=== PATIENT | female | born 1990 ===

== ENCOUNTER 2016-07-31 22:51 | Inpatient (IN) | payer OTHER ==
[2016-07-31 23:20] VITALS: BMI 29.5
--- NOTE | 2016-07-31 23:21 | OBHP ---
Datetime: 07/31/2016 23:14 IP Adm Impression: Ruptured Membranes IP Admit Plan: Admit to unit; Initiate labor protocol Admit Comment, IP Provider: at 39weeks came with c/o rom at 10 pm , c/o ctxs irrg , 08/03, no vb ,+fm. obhx primi pmh den med pnv all nkda psh denies soch denies sse 1-2/50/-3 a/p at 39+weeks prom admit to l_d npo/ivf labs cont kiya and efm painmagement anticipate dr quesada aware Pelvic Type - PN: Adequate Extremities - PN: Normal Abdomen - PN: Normal Back - PN: Normal Breast - PN: Normal Lungs - PN: Normal Heart - PN: Normal Thyroid - PN: Normal Neurologic - PN: Normal HEENT - PN: Normal General - PN: Normal FHR - Baseline A Provider: 130 Amniotic Fluid Color, Provider: Clear Membranes, Provider: Ruptured Contraction Comments Provider: q1-4 Comments, ACOG Physical Exam: gravid,non tender ext no edema,no calf ten sse =pooling,+nitazine IP Hx Assessment: The History has been Reviewed and is Current EGA AdmitDate IP: 39.5 Vital Signs Provider: Reviewed; Within Normal Limits IP Chief Complaint: Uterine contractions; Suspected ruptured membranes NICHD Variability Prov Fetus A: Moderate 6-25bpm NICHD Accel Fetus A IP Provider: [id number] FHR Category Provider Fetus A: Category I Dilatation, Provider: 1 Effacement, Provider: 50 Station, Provider: -3 Genitourinary Exam: Normal DTRs - PN: Normal
[2016-07-31] MEDS ORDERED: Lactated Ringer's 1,000 ML IV SCH (23:30)
[2016-07-31] MEDS ORDERED: Nalbuphine 20 mg/ml Inj (1 ml) IVP PRN (23:30)
[2016-07-31 23:57] LABS: BASO % 0.2 % (0.0-2.0); EOS # 0.1 K/uL (0.0-0.7); EOS % 0.5 % (0.0-4.0); HEMATOCRIT 37.1 % (34.0-47.0); LYMPH # 2.1 K/uL (1.0-4.3); LYMPH % 14.6 % (20.0-40.0); MEAN CELL VOLUME 80.4 fL (81.0-99.0); MEAN CORPUSCULAR HEMOGLOBIN 25.9 pg (27.0-31.0); MEAN CORPUSCULAR HGB CONC 32.2 g/dL (33.0-37.0); MEAN PLATELET VOLUME 8.3 fL (7.2-11.7); MONO # 1.4 K/uL (0.0-0.8); MONO % 9.9 % (0.0-10.0); RED CELL DISTRIBUTION WIDTH 24.2 % (11.5-14.5); WHITE BLOOD COUNT 14.2 K/uL (4.8-10.8)
[2016-08-01 00:01] LABS: RBC URINE 2 /hpf (0-3); URINE BACTERIA RARE (<OCC); URINE BILIRUBIN NEGATIVE (NEGATIVE); URINE COLOR Yellow (YELLOW); URINE GLUCOSE (UA) NORMAL (Normal); URINE KETONE NEGATIVE (NEGATIVE); URINE LEUKOCYTE ESTERASE NEG Leu/uL (Negative); URINE PROTEIN NEGATIVE (NEGATIVE); URINE UROBILINOGEN NORMAL mg/dL (0.2-1.0); WBC URINE 1 /hpf (0-5)
[2016-08-01 00:16] LABS: CHLORIDE 102 mmol/L (98-107); POTASSIUM 3.7 mmol/L (3.6-5.2); SODIUM 136 mmol/L (132-148)
[2016-08-01 00:18] LABS: ALB/GLOB RATIO 1.1 (1.0-2.1); AST/SGOT 22 U/L (14-36); BILIRUBIN,TOTAL 0.5 mg/dL (0.2-1.3); BLOOD UREA NITROGEN 4 mg/dL (7-17); CARBON DIOXIDE 22 mmol/L (22-30); GFR AFRICAN-AMERICAN > 60; TOTAL PROTEIN 6.8 g/dL (6.3-8.3)
[2016-08-01 00:19] LABS: ALKALINE PHOSPHATASE 177 U/L (38-126); ALT/SGPT 22 U/L (9-52); CALCIUM 8.9 mg/dl (8.6-10.4); GLUCOSE,RANDOM 86 mg/dL (65-105)
[2016-08-01 00:21] LABS: URINE BLOOD TRACE (NEGATIVE)
[2016-08-01] MEDS ORDERED: Oxytocin 30 UNIT 30 UNITS/500 ML BAG IV PRN (07:55)
[2016-08-01] MEDS ORDERED: Oxytocin 20 units in LR 0 ML IV ONE (09:04)
[2016-08-01] MEDS ORDERED: Oxytocin 30 UNIT 30 UNITS/500 ML BAG IV ONE (09:12)
--- NOTE | 2016-08-01 09:32 | US ---
PROCEDURE: OB limited Pelvic Ultrasound with biophysical profile HISTORY: abdominal pain 3rd trimester. LMP 10/29/2015. Estimated gestational age by LMP 39 weeks 4 days. . Patient having contractions. . History patient " broke her water" . COMPARISON: None available. FINDINGS: UTERUS: Single Live intrauterine gestation. age (Ultrasound estimated): 38 weeks 6 days by multiple ultrasound metric parameters Date of delivery (Ultrasound estimated) : 08/09/2016 Heart rate: 146 bpm. Ti[place]-gestational hemorrhage: No gross hemorrhage Placenta is anterior. No previa seen. Placenta appears greater than 2 cm from the cervix. presentation is cephalic. No appreciable amniotic fluid. -this markedly limits anatomy evaluation as does the advanced gestation development FINDINGS: Biophysical profile score 6/8 Based on the followin. breathing movements: 2/2 2. Gross body movement: 2/2 3. tone: 2/2 4. Qualitative amniotic fluid index: 0/2 Estimated weight 3478 g +/-520 1.64 g (7 lb 11 oz +/- 1 lb 2 oz). Estimated weight 44.3 percent CERVIX: Limited visualization. RIGHT OVARY: Not visualized LEFT OVARY: Not visualized FREE FLUID: None. OTHER FINDINGS: None. IMPRESSION: Single intrauterine gestation with cardiac activity whose multiple biometric ultrasound parameters correspond to an estimated gestational age of 38 weeks 6 days. Vertex presentation. Anterior placenta. No previa Biophysical profile score 6/8 -no contribution from amniotic fluid.
[2016-08-01] MEDS ORDERED: Bupivacaine 0.125%/FentaNYL 200 ML EPI ONE (11:18)
[2016-08-01] MEDS ORDERED: Lidocaine 2% Inj (20ml) ONE (17:38)
[2016-08-01] MEDS ORDERED: Midazolam 2 MG/2 ML VIAL ONE (18:38)
[2016-08-01] MEDS ORDERED: Oxycodone/Acetaminophen 5/325 mg Tab PO PRN ×2 (18:52)
[2016-08-01] MEDS ORDERED: Benzocaine/Menthol 20%-0.5% Topical Spray (60 ml) TOP PRN (18:52)
[2016-08-02 08:12] LABS: EOS # 0.1 K/uL (0.0-0.7); LYMPH # 2.6 K/uL (1.0-4.3); MEAN CELL VOLUME 81.2 fL (81.0-99.0)
[2016-08-02 08:26] LABS: BASO % 0.2 % (0.0-2.0); EOS % 0.4 % (0.0-4.0); HEMATOCRIT 32.5 % (34.0-47.0); LYMPH % 12.1 % (20.0-40.0); MEAN CORPUSCULAR HEMOGLOBIN 25.8 pg (27.0-31.0); MEAN CORPUSCULAR HGB CONC 31.8 g/dL (33.0-37.0); MEAN PLATELET VOLUME 8.7 fL (7.2-11.7); MONO # 1.4 K/uL (0.0-0.8); MONO % 6.4 % (0.0-10.0)
[2016-08-02 08:33] LABS: WHITE BLOOD COUNT 21.6 K/uL (4.8-10.8)
--- NOTE | 2016-08-02 15:28 | OBPPN ---
Datetime: 08/02/2016 15:22 PP Pain Prov: Within normal limits PP Breasts Prov: Normal PP Heart Prov: Normal PP Lungs Prov: Normal PP Abdomen/Uterus Prov: Normal PP Lochia Prov: Normal PP Vulva/Perineum Prov: Normal PP CVA Tenderness Prov: Normal PP Extremities Prov: Normal PP Progress Prov: Normal PP Impression Prov: Normal progression PP Plan Prov: Continue present management PP Progress Note Prov: PPD #1 No C/O VS Stable Abdomen Soft HOF -3 P: Home in AM if stable IP PP Procedures: None
--- NOTE | 2016-08-02 15:29 | OBDCSUM ---
Datetime: 08/02/2016 15:26 Follow up at, Provider: Dr. Conn Disch Instr Activity: May Shower Disch Instr Diet: Regular Discharge Instructions, Provider: Routine instructions given Discharge Diagnosis, Provider: Term Delivered; PROM - Indicate X Hours Follow up in weeks, Provider: 4 weeks Disch Referrals: None Disch Activity Restrictions: No sexual activity Discharge Comment, Provider: Home in AM if stable Contraception after Delivery: Not Planning to Use
[2016-08-03 08:04] VITALS: BP 111/68; PULSE 82; RESP 18; TEMP 97.2; O2SAT 100
== END 2016-08-03 14:43 | disposition home or self-care (01) | DRG 775 ==
LOC: C.EROB 22:51 → C.4D 23:31 → C.4M 08-01 20:51
PROVIDERS: ADMIT Obstetrics & Gynecology; ATTEND Obstetrics & Gynecology
PROC: 10E0XZZ Delivery of Products of Conception, External Approach (ICD-10-PCS; principal; 2016-07-31)
DX: O42.90 Premature rupture of membranes, unspecified as to length of time between rupture and onset of labor, unspecified weeks of gestation (principal); Z37.0 Single live birth; Z3A.39 39 weeks gestation of pregnancy